=== PATIENT | female | born 1955 | race Caucasian/White ===

== ENCOUNTER 2022-05-31 15:06 | Inpatient (IN) | payer OTHER ==
[2022-05-31 15:13] VITALS: BMI 22.9
[2022-05-31] MEDS ORDERED: SODIUM CHLORIDE 1,000 ML IV ONE (16:14)
[2022-05-31 16:27] LABS: HEMATOCRIT 39.7 % (32.4-45.2); HEMOGLOBIN 13.5 GM/dL (10.7-15.3); MCHC 33.9 g/dl (32.0-36.0); MEAN CELL VOLUME 82.7 fl (80-96); MEAN PLT VOLUME 7.7 fl (7.5-11.1); PLATELET COUNT 460 10^3/uL (134-434); RDW 15.2 % (11.6-15.6); WHITE BLOOD COUNT 12.8 K/mm3 (4.0-10.0)
[2022-05-31 16:44] LABS: ALBUMIN 2.2 g/dl (3.4-5.0); BLOOD UREA NITROGEN 19.9 mg/dL (7-18); CALCIUM 7.9 mg/dL (8.5-10.1)
[2022-05-31 16:48] LABS: BILIRUBIN,TOTAL 0.8 mg/dL (0.2-1); TOT PROT 6.3 g/dl (6.4-8.2)
[2022-05-31 17:46] LABS: ANISOCYTOSIS 1+; MACROCYTOSIS 0
[2022-05-31] MEDS ORDERED: AMOX TR/POT CLAV 875MG/125MG TABLETS (FP) PO ONE (17:59)
[2022-05-31] MEDS ORDERED: AZITHROMYCIN 250 MG TABLET PO ONE (17:59)
[2022-05-31] MEDS ORDERED: AZITHROMYCIN 250 MG TABLET ONE (18:10)
[2022-05-31] MEDS ORDERED: AMOX TR/POT CLAV 875MG/125MG TABLETS (FP) ONE (18:11)
[2022-06-01] MEDS ORDERED: ACETAMINOPHEN 325 MG TABLET (FP) PO ONE ×2 (00:01→21:21)
[2022-06-01] MEDS ORDERED: ACETAMINOPHEN 325 MG TABLET (FP) ONE (00:33)
[2022-06-01 00:42] LABS: CALCIUM 7.1 mg/dL (8.5-10.1)
[2022-06-01 00:43] LABS: BLOOD UREA NITROGEN 16.3 mg/dL (7-18)
[2022-06-01 00:45] LABS: CREATININE 0.8 mg/dL (0.55-1.3)
[2022-06-01] MEDS ORDERED: ACETAMINOPHEN INJECTION 100 ML IVPB ONE (02:13)
[2022-06-01] MEDS: ACETAMINOPHEN 1000 MG/100 ML BAG IVPB ONE (02:19)
[2022-06-01 07:24] LABS: HEMATOCRIT 34.2 % (32.4-45.2); HEMOGLOBIN 11.6 GM/dL (10.7-15.3); MCH 27.8 pg (25.7-33.7); MCHC 33.9 g/dl (32.0-36.0); MEAN PLT VOLUME 7.8 fl (7.5-11.1); PLATELET COUNT 409 10^3/uL (134-434); RBC 4.17 M/mm3 (3.60-5.2); WHITE BLOOD COUNT 13.6 K/mm3 (4.0-10.0)
[2022-06-01 07:39] LABS: CHLORIDE 105 mmol/L (98-107); SODIUM 139 mmol/L (136-145)
[2022-06-01 07:41] LABS: ANION GAP 10 MMOL/L (8-16); BLOOD UREA NITROGEN 15.9 mg/dL (7-18); CO2 24 mmol/L (21-32); GLUCOSE,RANDOM 88 mg/dL (74-106); MAGNESIUM 2.2 mg/dL (1.8-2.4)
[2022-06-01 07:45] LABS: CREATININE 0.7 mg/dL (0.55-1.3); PHOSPHOROUS 2.4 mg/dL (2.5-4.9); SGOT/AST 27 U/L (15-37); SGPT/ALT 14 U/L (13-61); TOT PROT 5.3 g/dl (6.4-8.2)
[2022-06-01 07:46] LABS: BILIRUBIN,TOTAL 0.6 mg/dL (0.2-1)
[2022-06-01 07:47] LABS: ALK PHOS 84 U/L (45-117)
[2022-06-01] MEDS ORDERED: NAPH,MB-DB/K PH,MBDB POWDER PACKET PO ONE (08:00)
[2022-06-01 08:04] LABS: CALCIUM 6.8 mg/dL (8.5-10.1)
[2022-06-01 09:06] LABS: ANISOCYTOSIS 0; MACROCYTOSIS 0
[2022-06-01] MEDS ORDERED: NAPH,MB-DB/K PH,MBDB POWDER PACKET ONE (09:16)
[2022-06-01] MEDS ORDERED: AZITHROMYCIN IVPB 500 MG/250 ML BAG IVPB ONE (09:16)
[2022-06-01] MEDS ORDERED: CEFTRIAXONE 1 GM/50 ML BAG ONE (09:16)
[2022-06-01] MEDS ORDERED: ENOXAPARIN NA (PORCINE) 40 MG/0.4 ML DISP.SYRIN SQ ONE (09:16)
[2022-06-01] MEDS: CEFTRIAXONE 1 GM in DEXTROSE 5%-WATER - 50 ML IVPB SCH (09:18)
[2022-06-01] MEDS: ENOXAPARIN NA (PORCINE) 40 MG/0.4 ML DISP.SYRIN SQ SCH (09:18)
[2022-06-01] MEDS ORDERED: POTASSIUM CHLORIDE TABS 20 MEQ TABLET.ER (FP) PO ONE (09:45)
[2022-06-01] MEDS: ALPRAZolam 1 MG TABLET PO ONE ×2 (12:11→12:16)
[2022-06-01] MEDS ORDERED: ALPRAZolam 0.25 MG TABLET PO ONE (12:15)
[2022-06-01] MEDS: LACTATED RINGERS SOLUTION 1,000 ML/1,000 ML INFUS.BAG IV SCH (13:56)
[2022-06-01] MEDS: AZITHROMYCIN IVPB 250 MG in DEXTROSE 5%-WATER - 250 ML IVPB SCH (13:57)
[2022-06-01] MEDS: ACETAMINOPHEN 1000 MG/100 ML BAG IVPB PRN (15:36)
[2022-06-01 19:58] LABS: EPI CELLS >36 /uL (0-25.1); HYALINE CASTS 34 /uL (0-3.1); PH,URINE 5.5 (5.0-8.0); URINE APPEARANCE CLOUDY; URINE BACTERIA 11 /uL (0-1359); URINE BILIRUBIN 1+ (NEGATIVE); URINE COLOR DK YELLOW; URINE GLUCOSE (UA) NEGATIVE (NEGATIVE); URINE KETONE NEGATIVE (NEGATIVE); URINE LEUK ESTERASE NEGATIVE (NEGATIVE); URINE NITRITE NEGATIVE (NEGATIVE); URINE PROTEIN 1+ (NEGATIVE); URINE WBC 51 /uL (0-25.8)
[2022-06-01 20:53] LABS: URINE RBC 41.7 /uL (0-23.9)
[2022-06-02] MEDS: ACETAMINOPHEN 1000 MG/100 ML BAG IVPB PRN ×2 (04:31→11:18)
[2022-06-02 09:04] LABS: HEMOGLOBIN 11.2 GM/dL (10.7-15.3); MCH 27.5 pg (25.7-33.7); MCHC 33.9 g/dl (32.0-36.0); MEAN CELL VOLUME 81.3 fl (80-96); MEAN PLT VOLUME 7.5 fl (7.5-11.1); PLATELET COUNT 427 10^3/uL (134-434); RBC 4.06 M/mm3 (3.60-5.2); WHITE BLOOD COUNT 9.5 K/mm3 (4.0-10.0)
[2022-06-02 09:27] LABS: ALBUMIN 1.8 g/dl (3.4-5.0); BLOOD UREA NITROGEN 11.6 mg/dL (7-18)
[2022-06-02 09:30] LABS: CREATININE 0.6 mg/dL (0.55-1.3); PHOSPHOROUS 1.8 mg/dL (2.5-4.9)
[2022-06-02 09:31] LABS: TOT PROT 4.8 g/dl (6.4-8.2)
[2022-06-02 09:32] LABS: BILIRUBIN,TOTAL 0.4 mg/dL (0.2-1)
[2022-06-02] MEDS: AZITHROMYCIN IVPB 250 MG in DEXTROSE 5%-WATER - 250 ML IVPB SCH (11:19)
[2022-06-02] MEDS: CEFTRIAXONE 1 GM in DEXTROSE 5%-WATER - 50 ML IVPB SCH (11:19)
[2022-06-02] MEDS: ENOXAPARIN NA (PORCINE) 40 MG/0.4 ML DISP.SYRIN SQ SCH (11:19)
[2022-06-02 11:20] LABS: ANISOCYTOSIS 0; MACROCYTOSIS 0
[2022-06-02] MEDS: ACETAMINOPHEN 1000 MG/100 ML BAG IVPB ONE (16:26)
[2022-06-02] MEDS: LACTATED RINGERS SOLUTION 1,000 ML/1,000 ML INFUS.BAG IV SCH (17:29)
[2022-06-02] MEDS ORDERED: POTASSIUM PHOSPHATE IVPB ONE (18:15)
[2022-06-02] MEDS ORDERED: SODIUM CHLORIDE IVPB ONE (18:15)
[2022-06-03] MEDS: ENOXAPARIN NA (PORCINE) 40 MG/0.4 ML DISP.SYRIN SQ SCH (09:23)
[2022-06-03] MEDS: AZITHROMYCIN IVPB 250 MG in DEXTROSE 5%-WATER - 250 ML IVPB SCH (09:23)
[2022-06-03] MEDS: CEFTRIAXONE 1 GM in DEXTROSE 5%-WATER - 50 ML IVPB SCH (09:24)
[2022-06-03] MEDS ORDERED: ACETAMINOPHEN 1000 MG/100 ML BAG IVPB ONE (09:30)
[2022-06-03 10:30] LABS: BASO % 0.6 % (0-2.0); EOS % 0.8 % (0-4.5); HEMATOCRIT 33.8 % (32.4-45.2); HEMOGLOBIN 11.3 GM/dL (10.7-15.3); LYMPH % 12.2 % (8-40); MCH 27.5 pg (25.7-33.7); MCHC 33.3 g/dl (32.0-36.0); MEAN CELL VOLUME 82.5 fl (80-96); MEAN PLT VOLUME 7.6 fl (7.5-11.1); MONO % 8.1 % (3.8-10.2); NEUT % 78.3 % (42.8-82.8); PLATELET COUNT 503 10^3/uL (134-434); RDW 15.7 % (11.6-15.6)
[2022-06-03 11:23] LABS: ALBUMIN 1.8 g/dl (3.4-5.0)
[2022-06-03 11:25] LABS: CALCIUM 7.2 mg/dL (8.5-10.1)
[2022-06-03 11:26] LABS: PHOSPHOROUS 2.3 mg/dL (2.5-4.9)
[2022-06-03 11:27] LABS: CREATININE 0.5 mg/dL (0.55-1.3)
[2022-06-03 11:30] LABS: BILIRUBIN,TOTAL 0.3 mg/dL (0.2-1)
[2022-06-03] MEDS ORDERED: POTASSIUM PHOSPHATE 20 MM in DEXTROSE 5%-WATER - 250 ML IVPB ONE (15:00)
[2022-06-03] MEDS: LACTATED RINGERS SOLUTION 1,000 ML/1,000 ML INFUS.BAG IV SCH (15:36)
[2022-06-04 08:56] LABS: BASO % 0.6 % (0-2.0); EOS % 1.2 % (0-4.5); HEMATOCRIT 35.7 % (32.4-45.2); HEMOGLOBIN 12.1 GM/dL (10.7-15.3); LYMPH % 12.6 % (8-40); MCH 27.8 pg (25.7-33.7); MCHC 33.8 g/dl (32.0-36.0); MEAN CELL VOLUME 82.3 fl (80-96); MEAN PLT VOLUME 7.3 fl (7.5-11.1); NEUT % 77.6 % (42.8-82.8); PLATELET COUNT 546 10^3/uL (134-434); RBC 4.34 M/mm3 (3.60-5.2); RDW 15.3 % (11.6-15.6)
[2022-06-04 09:19] LABS: BLOOD UREA NITROGEN 6.6 mg/dL (7-18); CALCIUM 7.6 mg/dL (8.5-10.1)
[2022-06-04 09:20] LABS: MAGNESIUM 1.9 mg/dL (1.8-2.4)
[2022-06-04 09:22] LABS: PHOSPHOROUS 2.2 mg/dL (2.5-4.9)
[2022-06-04 09:23] LABS: CREATININE 0.5 mg/dL (0.55-1.3); TOT PROT 5.6 g/dl (6.4-8.2)
[2022-06-04 09:27] LABS: BILIRUBIN,TOTAL 0.4 mg/dL (0.2-1)
[2022-06-04] MEDS ORDERED: NAPH,MB-DB/K PH,MBDB POWDER PACKET PO ONE (10:07)
[2022-06-04] MEDS: CEFTRIAXONE 1 GM in DEXTROSE 5%-WATER - 50 ML IVPB SCH (10:10)
[2022-06-04] MEDS: ENOXAPARIN NA (PORCINE) 40 MG/0.4 ML DISP.SYRIN SQ SCH (10:10)
[2022-06-04] MEDS: AZITHROMYCIN IVPB 250 MG in DEXTROSE 5%-WATER - 250 ML IVPB SCH (10:36)
[2022-06-04 12:57] VITALS: BP 130/72; PULSE 88; RESP 18; TEMP 99
== END 2022-06-04 16:23 | disposition home or self-care (01) | DRG 871 ==
LOC: JER 15:06 → JERBED 19:05 → OBSVTOIN 19:05 → J7W 06-01 09:49
PROVIDERS: ADMIT Internal Medicine; ATTEND Internal Medicine
DX: A41.9 Sepsis, unspecified organism (principal); J18.9 Pneumonia, unspecified organism; J96.01 Acute respiratory failure with hypoxia; J90 Pleural effusion, not elsewhere classified; J98.11 Atelectasis; R31.29 Other microscopic hematuria; R82.81 Pyuria; R01.1 Cardiac murmur, unspecified
CPT/HCPCS: 0241U-QW; 36415; 71046-TC-FY; 71250-TC; 80048; 80053; 81003; 83735; 84100; 85025; 87040; 87086; 87633; 87899; 93005; 93010; 99285-25

== ENCOUNTER 2023-09-15 06:17 | Day surgery (SDC) | payer OTHER ==
[2023-09-10 11:47] VITALS: BMI 21.7
[2023-09-15] MEDS: CIPROFLOXACIN 0.3% EYE DROPS 5 ML BOTTLE OS ONE ×3 (07:00→07:10)
[2023-09-15] MEDS: CYCLOPENTOLATE 2% OPHTH SOLN 2 ML BOTTLE OS ONE ×3 (07:00→07:10)
[2023-09-15] MEDS: PHENYLEPHRINE 2.5% OPTHALMIC DROP BOTTLE OS ONE ×3 (07:00→07:10)
[2023-09-15] MEDS: TROPICAMIDE 1% OPHTH SOLN 15 ML BOTTLE OS ONE ×3 (07:00→07:10)
[2023-09-15] MEDS ORDERED: MIDAZOLAM HCL 2 MG/2 ML SINGLE DOSE VIAL ONE ×2 (07:03→08:10)
[2023-09-15] MEDS ORDERED: LIDOCAINE 1% P/F 10 MG/ML VIAL ONE (07:11)
[2023-09-15] MEDS ORDERED: EPINEPHrine/PF 1 MG/1 ML (1:1,000) AMPULE ONE (07:11)
[2023-09-15] MEDS ORDERED: LIDOCAINE HCL/PF 1% SDV 5ML VIAL ONE (07:11)
[2023-09-15] MEDS ORDERED: NEO/POLYMYX B SULF/DEXAMETH OPHTHALMIC 5ML BOTTLE ONE (07:12)
[2023-09-15] MEDS ORDERED: BSS (NA/CA/MG/K) BALANCED SALT SOLUTION OPHTH SOLN 15 ML BOTTLE ONE (07:12)
[2023-09-15] MEDS ORDERED: CARBACHOL 0.01% INTRA-OCULAR 1.5 ML VIAL ONE (07:12)
[2023-09-15] MEDS ORDERED: TETRACAINE 0.5% OPHTH SOLN 2 ML BOTTLE ONE (07:12)
[2023-09-15 08:32] VITALS: TEMP 97.6
[2023-09-15 09:11] VITALS: BP 129/74; PULSE 79; RESP 18
== END 2023-09-15 09:10 | disposition home or self-care (01) ==
LOC: FASU 06:17
PROVIDERS: ATTEND Ophthalmology
PROC: 08RK3JZ Replacement of Left Lens with Synthetic Substitute, Percutaneous Approach (ICD-10-PCS; principal; 2023-09-15 08:10)
DX: H26.8 Other specified cataract (principal)
CPT/HCPCS: 66984; V2632

== ENCOUNTER 2023-11-17 09:29 | Day surgery (SDC) | payer OTHER ==
[2023-11-10 16:07] VITALS: BMI 21.7
[2023-11-17] MEDS ORDERED: BSS (NA/CA/MG/K) BALANCED SALT SOLUTION OPHTH SOLN 15 ML BOTTLE ONE (09:35)
[2023-11-17] MEDS ORDERED: TETRACAINE 0.5% OPHTH SOLN 2 ML BOTTLE ONE (09:35)
[2023-11-17] MEDS ORDERED: LIDOCAINE 1% P/F 10 MG/ML VIAL ONE (09:35)
[2023-11-17] MEDS ORDERED: NEO/POLYMYX B SULF/DEXAMETH OPHTHALMIC 5ML BOTTLE ONE (09:36)
[2023-11-17] MEDS ORDERED: CARBACHOL 0.01% INTRA-OCULAR 1.5 ML VIAL ONE (09:36)
[2023-11-17] MEDS: CYCLOPENTOLATE 2% OPHTH SOLN 2 ML BOTTLE ONE (09:50)
[2023-11-17] MEDS: CIPROFLOXACIN 0.3% EYE DROPS 5 ML BOTTLE ONE (09:50)
[2023-11-17] MEDS: PHENYLEPHRINE 2.5% OPTHALMIC DROP 2ML BOTTLE ONE (09:50)
[2023-11-17] MEDS: TROPICAMIDE 1% OPHTH SOLN 15 ML BOTTLE ONE (09:50)
[2023-11-17 10:08] VITALS: TEMP 97.1
[2023-11-17] MEDS ORDERED: MIDAZOLAM HCL 2 MG/2 ML SINGLE DOSE VIAL ONE ×2 (11:09→11:13)
[2023-11-17 11:49] VITALS: RESP 18
[2023-11-17 12:10] VITALS: BP 136/89; PULSE 73
== END 2023-11-17 12:15 | disposition home or self-care (01) ==
LOC: FASU 09:29
PROVIDERS: ATTEND Ophthalmology
PROC: 08RJ3JZ Replacement of Right Lens with Synthetic Substitute, Percutaneous Approach (ICD-10-PCS; principal; 2023-11-17 11:13)
DX: H26.8 Other specified cataract (principal)
CPT/HCPCS: 66984; V2632